=== PATIENT | male | born 1945 | race Caucasian/White ===

== ENCOUNTER 2016-07-02 06:50 | Day surgery (SDC) | payer MEDICARE ==
--- NOTE | ~2016-07-02 | EGD ---
EGD REPORT [facility] [address] [id number] NAME: ZHANG LOUIS : [birth year] STATUS : REG [facility]#: [id number] AGE: 70 ADM/REG DATE : 07/02/16 MR#: [id number] REPORT SERV DATE: 07/02/16 DICTATED BY: ISA CORTEZ DATE: 07/02/16 REPORT STATUS : Draft [facility]: [facility] DATE: 07/02/16 Endoscopy Center Patient Name: Zhang Louis Date of : 1945 Attending MD: ISA CORTEZ MD Procedure Date No Time: 07/02/2016 Procedure: Upper GI endoscopy Indications: Follow-up of acute gastric ulcer Referring MD: Maddie HERNANDEZ II Medicines: Monitored Anesthesia Care Complications: No immediate complications. Procedure: Pre-Anesthesia Assessment: - ASA Grade Assessment: II - A patient with mild systemic disease. After obtaining informed consent, the endoscope was passed under direct vision. Throughout the procedure, the patient's blood pressure, pulse, and oxygen saturations were monitored continuously. The GIF [id number] was introduced through the mouth, and advanced to the second part of duodenum. The upper GI endoscopy was accomplished without difficulty. The patient tolerated the procedure well. Findings: LA Grade B (one or more mucosal breaks greater than 5 mm, not extending between the tops of two mucosal folds) esophagitis with no bleeding was found at the gastroesophageal junction. Biopsies were taken with a cold forceps for histology. Localized moderate inflammation characterized by erythema was found in the gastric antrum. Biopsies were taken with a cold forceps for histology. The cardia and gastric fundus were normal on retroflexion. The duodenal bulb and 2nd part of the duodenum were normal. Impression: - LA Grade B esophagitis. Biopsied. - Gastritis. Biopsied. - Normal duodenal bulb and 2nd part of the duodenum. Recommendation: - Patient has a contact number available for emergencies. The signs and symptoms of potential delayed complications were discussed with the patient. Return to normal activities tomorrow. Written discharge instructions were provided to the patient. - Regular diet. - Continue present medications. EGD REPORT [address] [address] NAME: ZHANG LOUIS : [birth year] [place]US : [place] [facility] [place] [id number] AGE: 70 ADM/REG DATE : 07/02/16 MR#: [id number] REPORT SERV DATE: 07/02/16 DICTATED BY: ISA CORTEZ DATE: 07/02/16 REPORT STATUS : Draft TRANSCRIBED BY: [employer] DATE: 07/02/16 - Await pathology results. - Return to GI clinic PRN. Procedure Code(s): --- Professional --- 46302, Esophagogastroduodenoscopy, flexible, transoral; with biopsy, single or multiple Diagnosis Code(s): --- Professional --- K20.9, Esophagitis, unspecified K29.70, Gastritis, unspecified, without bleeding K25.3, Acute gastric ulcer without hemorrhage or perforation CPT copyright 2013 [employer]. All rights reserved. The codes documented in this report are preliminary and upon machine cloth examiner review may be revised to meet current compliance requirements. ISA CORTEZ MD 07/02/2016 8:39 AM This report has been signed electronically. Number of Addenda: 0 Note Initiated On: 07/02/2016 8:21 AM Scope Withdrawal Time 0 hours 0 minutes 0 seconds [address] [place] [address]
[~2016-07-02 06:50] MED LIST: ADVIL PO; FLOMAX4 PO; HALF81 PO; OTC FISH OIL PO; PROSCAR5 PO; PROTONIX PO
== END 2016-07-02 23:59 | disposition home health service (06) ==
LOC: DMU 06:50
PROVIDERS: Internal Medicine Gastroenterology
PROC: 0DB68ZX Excision of Stomach, Via Natural or Artificial Opening Endoscopic, Diagnostic (ICD-10-PCS; 2016-07-02)
PROC: 0DB48ZX Excision of Esophagogastric Junction, Via Natural or Artificial Opening Endoscopic, Diagnostic (ICD-10-PCS; principal; 2016-07-02 08:00)
DX: K22.10 Ulcer of esophagus without bleeding (principal); Z86.010 Personal history of colon polyps; Z98.890 Other specified postprocedural states; Z98.41 Cataract extraction status, right eye; Z98.42 Cataract extraction status, left eye; Z96.1 Presence of intraocular lens
CPT/HCPCS: 88305